=== PATIENT | female | born 1940 | race Caucasian/White ===

== ENCOUNTER → 2020-11-20 12:44 | Outpatient (REF) | payer MEDICARE, SELFPAY ==
--- NOTE | 2020-11-20 13:00 | CA_ITS ---
Transthoracic Echocardiogram Amended Patient (Last, First, Middle): Tiffani Wilhelm, Gender: Female Date of : 1940 Age: 80 Procedure Date: 11/20/2020 Procedure Type: Transthoracic Echocardiogram Location: OP Height: 142.24 cm Weight: 68.04 kg BSA: 1.57 m2 Heart Rate: bpm BP: 124 / 80 mmHg Nurse Informaticist: IDA Balbuena MD: Helio Chong MD Front Desk Host: Helio Chong MD Symptoms: S/P CABG X4 S/P AVR Study Quality: Good ECG Rhythm: Sinus Conclusions: - 1. Normal LV systolic function with restrictive filling pattern 2. Moderate left atrial enlargement 3. 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 Normal RV systolic pressure 5. No pericardial effusion Findings Left Ventricle Normal left ventricular size, thickness, and systolic function. The visually estimated ejection fraction is between 60-65%. Spectral Doppler is indicative of a restrictive filling pattern. Right Ventricle Normal right ventricular cavity size and systolic function. Atria The left atrium is moderately dilated. There is no evidence of interatrial shunt. The right atrium is mildly dilated. Aortic Valve The prosthetic aortic valve appears to be functioning abnormally. The aortic valve was not well visualized. The peak aortic gradient is 31 mmHg.The mean gradient is 16 mmHg. The bioprosthetic valve appears to be seated well with no abnormal rocking motions. The leaflets are not well visualized. The mean gradient across the valve is 60 mm of mercury and unchanged from before. 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 There is mild mitral annular calcification. There is mild mitral valve regurgitation. There is no mitral valve stenosis. Pulmonic Valve The pulmonic valve was not well visualized. Tricuspid Valve Likely normal tricuspid valve structure and function. There is mild tricuspid valve regurgitation. The right ventricular systolic pressure is normal. The right ventricular systolic pressure is 28 mmHg. Normal right atrial pressure. There is no evidence of pulmonary hypertension. Great Vessels All visible segments of the aorta are normal in size. The pulmonary artery was not well visualized. Venous The inferior vena cava is normal in size and collapses greater than 50% with inspiration. Pericardium/Pleural There is no evidence of pericardial effusion. Prior Study Comparison No significant change compared to prior study dated: 02/10/2019. Measurements 2D Linear Measurements IVSd: 0.96 0.6-0.9/0.6-1.0 cm LVIDd: 4.19 3.9-5.3/4.2-5.9 cm LVIDd Index: 2.67 2.4-3.2/2.2-3.1 cm/m2 LVIDs: 3.06 2.0-3.6 cm LVPWd: 0.96 0.7-1.1 cm LA Diam: 4.50 2.7-3.8/3.0-4.0 cm LAIDs Index: 2.87 1.5-2.3 cm/m2 LV Mass: 160.72 67-162/88-224 g LV Mass Index: 102.37 43-95/49-115 g/m2 LVOT Diam: 2.00 3.0+(-)1.3 cm 2D Volumes LA Vol: 45.70 2D Systolic Function EF 4C: 57.90 >55% EF 2C: 62.50 >55% EF BiP: 61.30 >55% Mitral Valve E'Lateral: 5.87 E'Medial: 4.46 Aortic Valve AoV Pk Maury: 2.79 AoV Mn Maury: 1.95 AoV VTI: 0.65 AoV Pk Grad: 31.00 Aov Mn Grad: 16.00 MERRILL Cont.VTI: 1.07 LVOT LVOT Pk Maury: 0.74 LVOT Mn Maury: 0.51 LVOT VTI: 0.22 LVOT Pk Grad: 2.00 LVOT Mn Grad: 1.00 LVOT Diam: 2.00 LVOT Area: 3.14 Diastolic Function E'Medial: 4.46 E' Laterial: 5.87 Tricuspid Valve TR Pk Maury: 2.48 TR Pk Grad: 25.00 RA Press: 3.00 RVSP: 28.00 Great Vessels Aorta Ao Asc: 2.90 2.1-3.4 cm Ao Arch: 2.10 Updated in Other Vendor System with Status of Final Helio Chong MD electronically signed on 11/23/2020 1:36:04 PM with status of Final
== END ==
LOC: HO.CARD 12:44
PROVIDERS: PCP Internal Medicine; Visit Provider Internal Medicine Cardiovascular Disease
DX: I25.10 Atherosclerotic heart disease of native coronary artery without angina pectoris (principal); T82.09XD Other mechanical complication of heart valve prosthesis, subsequent encounter; Z95.1 Presence of aortocoronary bypass graft; Z95.2 Presence of prosthetic heart valve
CPT/HCPCS: 93306

== ENCOUNTER → 2020-11-23 12:56 | Outpatient (BNVA) | payer MEDICARE, SELFPAY | PROVIDERS: PCP Internal Medicine; Referring Provider Internal Medicine; Visit Provider Internal Medicine Cardiovascular Disease | DX: I25.10 Atherosclerotic heart disease of native coronary artery without angina pectoris (principal); R06.02 Shortness of breath; R53.1 Weakness; T82.09XA Other mechanical complication of heart valve prosthesis, initial encounter | CPT/HCPCS: 93005; 99212 ==

== ENCOUNTER 2020-11-29 15:18 | Outpatient (REF) | payer MEDICARE, SELFPAY ==
--- NOTE | ~2020-11-29 | US_ITS ---
EXAMINATION: US EXTRACRANIAL CAROTID DUPLEX, BILATERAL CLINICAL INFORMATION: Weakness COMPARISON: Carotid duplex on 12/17/2010 TECHNIQUE: Real-time ultrasound and Doppler techniques (integrating B-mode 2-D vascular images, Doppler spectral analysis and color-flow Doppler imaging) were utilized to interrogate the extracranial carotid arteries, the vertebral arteries and proximal subclavian arteries bilaterally. The degree of stenosis is determined by criteria similar to NASCET. FINDINGS: Right Side: 1. There is calcified atherosclerotic plaque seen in the bifurcation/proximal ICA region. 2. The common carotid artery PSV proximally is 53.8 cm/s and distally 59.3 cm/s. 3. The proximal internal carotid artery velocities are 127 cm/s systolic and 25.2 cm/s diastolic. 4. The proximal external carotid artery PSV is 213 cm/s. 5. The vertebral artery shows antegrade flow. 6. The subclavian artery waveforms are normal. Left Side: 1. There is calcified atherosclerotic plaque seen in the bifurcation/proximal ICA region. 2. The common carotid artery PSV proximally is 72.2 cm/s and distally 61.5 cm/s. 3. The proximal internal carotid artery velocities are 80.6 cm/s systolic and 16.1 cm/s diastolic. 4. The proximal external carotid artery PSV is 91.8 cm/s. 5. The vertebral artery shows antegrade flow. 6. The subclavian artery waveforms are normal. US/US carotid duplex BI IMPRESSION: 1. 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 2. LEFT: Minimal, non-hemodynamically significant stenosis of the proximal left internal carotid artery corresponding to a 0-49% stenosis by velocity criteria. 3. Progression of disease on the right when compared to the exam of 12/17/2010. 4. Elevated velocities in the right external carotid artery suggesting stenosis.
== END 2020-11-29 15:19 | disposition home or self-care (01) ==
LOC: HO.US 15:18
PROVIDERS: Visit Provider Internal Medicine Cardiovascular Disease
DX: I25.10 Atherosclerotic heart disease of native coronary artery without angina pectoris (principal); R53.1 Weakness; G45.9 Transient cerebral ischemic attack, unspecified
CPT/HCPCS: 93880